=== PATIENT | female | born 1990 | race Caucasian/White ===

== ENCOUNTER 2019-12-26 17:17 | Emergency (ER) | payer OTHER ==
[~2019-12-26] VITALS: Ht 162.6 cm; Wt 61.2 kg
[2019-12-26] MEDS ORDERED: DICLOFENAC SODI75 MG PO (17:50)
== END 2019-12-26 18:05 | disposition home or self-care (01) ==
LOC: ER 17:17
DX: M94.0 Chondrocostal junction syndrome [Tietze] (principal)